=== PATIENT | female | born 1990 | race Two or more races ===

== ENCOUNTER 2019-05-17 13:10 | Emergency (ER) | payer OTHER ==
[~2019-05-17] VITALS: Ht 162.6 cm; Wt 59.0 kg
[2019-05-17 13:21] VITALS: Ht 162.6 cm; Wt 59.0 kg
[2019-05-17 16:06] VITALS: BP 102/60
== END 2019-05-17 16:34 | disposition home or self-care (01) ==
LOC: ED 13:10
DX: Z89.022 Acquired absence of left finger(s) (principal)
CPT/HCPCS: J0696; J2001; Q0092

== ENCOUNTER 2019-05-20 15:16 | Emergency (ER) | payer OTHER ==
[~2019-05-20] VITALS: Ht 160 cm; Wt 58.1 kg
[2019-05-20 15:33] VITALS: BP 111/67; Ht 160 cm; Wt 58.1 kg
== END 2019-05-20 16:15 | disposition home or self-care (01) ==
LOC: ED 15:16
DX: S68.121D Partial traumatic metacarpophalangeal amputation of left index finger, subsequent encounter (principal); X58.XXXD Exposure to other specified factors, subsequent encounter